=== PATIENT | male | born 1990 | race Caucasian/White ===

== ENCOUNTER 2018-07-15 20:28 | Emergency (ER) | payer SELFPAY ==
[2018-07-15] MEDS ORDERED: ONDANSETRON 4 MG/2 ML VIAL IVP ONE (20:35)
[2018-07-15] MEDS ORDERED: KETOROLAC 30 MG/1 ML SDV IVP ONE (20:39)
[2018-07-15] MEDS: NS 1,000 ML IV ONE ×2 (20:40→22:36)
--- NOTE | 2018-07-15 20:49 | EDPHY ---
H & P Stated Complaint: c/oright flank pain x 30 min Source: Patient Exam Limitations: No limitations - Personal History Current Tetanus Diphtheria and Acellular Pertussis (TDAP): Yes - Medical/Surgical History Hx Asthma: No Hx Chronic Respiratory Disease: No Hx Diabetes: No Hx Cardiac Disease: No Hx Renal Disease: No Hx Cirrhosis: No Hx Alcoholism: No Hx HIV/AIDS: No Hx Splenectomy or Spleen Trauma: No Other PMH: denies - Family History Significant Family History: No pertinent family hx - Social History Smoking Status: Never smoked Drug Use: Marijuana Time Seen by Provider: 07/15/18 20:33 HPI/ROS: 28-year-old male presents complaining of sudden onset of severe right flank pain. He states he was seated at a desk and pain began suddenly. He does state he has been struggling with back pain for over a year but this is very different feeling than that. He denies any injuries. He denies prior history of kidney stones. No fevers or chills. Review of systems As per HPI General no fever no chills no weakness HEENT no eye pain no eye discharge. No eye redness, no sore throat Respiratory no cough, no shortness of breath Cardiac no chest pain, no peripheral edema GI no abdominal pain, no diarrhea, no constipation, positive nausea positive vomiting positive flank pain, no hematuria, no dysuria Musculoskeletal no myalgias, no joint pain Heme no easy bruising, no easy bleeding Endo no polyuria, no polydipsia Skin no rashes, no pruritus Neuro no syncope, no dizziness, no headaches Psych is no suicidal ideation, no homicidal ideation (Aruna Brown B) - Physical Exam Exam: 28-year-old male alert and oriented initially hyperventilating and severe distress secondary to right flank pain notably with carpopedal spasm thin young male HEENT atraumatic normocephalic, extraocular muscles intact, anicteric Oropharynx dry mucosa Neck supple no meningismus Lungs clear to auscultation bilaterally Heart regular rate and rhythm without murmur rub or gallop Abdomen nondistended normoactive bowel sounds soft nontender Back no CVA tenderness, no step-offs, no spinal tenderness right lower back tenderness, no swelling,no rash, no ecchymoses Extremities no cyanosis clubbing or edema Neuro alert and oriented, no focal deficits (Brown,Aruna B) Constitutional: Initial Vital Signs Temperature (C) 36.6 C 07/15/18 20:31 Heart Rate 100 07/15/18 20:31 Respiratory Rate 22 H 07/15/18 20:31 Blood Pressure 141/100 H 07/15/18 20:31 O2 Sat (%) 100 07/15/18 20:31 O2 Delivery Mode Room Air Allergies/Adverse Reactions: No Known Allergies Allergy (Unverified 07/15/18 20:31) Home Medications: Medication Instructions Recorded Ondansetron [Zofran Odt] 4 - 8 mg PO Q8H PRN #6 tab.rapdis 07/16/18 Tamsulosin HCl [Flomax 0.4 MG (*)] 0.4 mg PO DAILY #7 cap 07/16/18 oxyCODONE HCL/ACETAMINOPHEN 1 - 2 each PO Q6 PRN #12 tablet 07/16/18 [Percocet 5-325 mg Tablet] Medical Decision Making - Diagnostics Imaging Results: Imaging Impressions Abdomen/Pelvis CT 07/15/18 21:57 Impression: 1. Moderate obstructive uropathy secondary to a 2 mm stone at the right ureterovesical junction. 2. Additional findings as above. Findings discussed with Aruna Brown MD 07/15/2018 at 22:26. Attention: This CT examination is specifically designed to evaluate patients who are clinically suspected of having acute obstructive uropathy. This examination does not use radiographic contrast and provides only a limited evaluation of the abdomen, pelvis and retroperitoneum. If there is further clinical suspicion for pathological conditions other than obstructive uropathy, a complete CT evaluation of the abdomen and pelvis utilizing intravenous and enteric contrast should be considered. ED Course/Re-evaluation: Patient seen and evaluated for right flank pain. IV established Patient given IV normal saline and Toradol 30 mg IV push as well as Zofran 4 mg IV push Labs CBC white blood cell count 15, H&H normal BMP Creatinine 1.3, electrolytes within normal limits Urine dip pending Patient continued to have right flank pain, given morphine [address] scan ordered to rule out obstructive uropathy CT positive for 2 mm stone at the right UVJ with mild hydronephrosis Patient with ongoing pain given an additional 4 mg morphine IV push. Imp Acute Obstructive Uropathy, Right UVJ Plan Care turned over to Dr Norah pending pain relief and ultimately discharge. ( Aruna Brown) Differential Diagnosis: Differential diagnosis considered but not limited to: Right paralumbar strain, herniated disc, pyelonephritis, kidney stone, ureteral stone (Aruna Brown) Other Provider: Patient care assumed at [2300]. Case reviewed with the initial physician, chart reviewed. Patient interviewed examined. Initially at 2300 hr the pain was in control at 23:00 p.m. Awaiting for him to urinate. Over the ensuing hour he received another L of fluid and again has been and Pee, does not really have the urge, the pain is slowly getting worse. CT scan reviewed and there is some shadows in the right kidney to suggest some early formation of other stones. There is indeed a 2 mm stone at the right UVJ. Interpretation by radiologist. Radiologist did communicate with Dr. Brown. The report has been reviewed and films of were reviewed by me on PACs. On my history the patient states he has been in the doldrums somewhat. With that, he finds he really does not hydrate all that much. Thus he concurs that he might well have been dehydrated going today. Ever since approximately a year ago he had a martial arts back injury and has had problems with that ever since on off and on basis. Earlier today he had quite a bit discomfort fter he went out for a run and thought that was the problem. Went to rest on the couch and felt"lethargic". It was at that time the pain on the back really started. He reports the pain is in the back this point in time is the same locations and sedation just more intense in that when he been having. Early in the week as well as today there is no dysuria frequency or hematuria. Evidently became somewhat panicked after getting the car as he was so much worse and the bumps in the road made things worth at which point noted the carpal pedal spasm. Thereby he had quite a difficulty getting out of a car. Pain management review has include the following: Toradol 30 mg at 20:39 pm Morphine 4 mg at 21:57 p.m. Morphine 4 mg at 22:29 p.m. On exam: Afebrile vital signs stable Nontoxic, he was given lean male who had carpopedal spasm which resolved. At this point in time as I have interviewed him and examined him his pain is become from moderate to moderately severe: Abdomen: Bowel sounds are present. Thin male though abdomen is flat at this time. However percussion notice diffusely tympanitic. I do not hear any dullness over the suprapubic area. Bedside ultrasound performed by me. Small did amount of urine in the bladder. Of note is that he was tender to the probe being pressed over the right flank. At that juncture, he was given the following: Dilaudid 1 mg IV Ativan 0.5 mg IV. Thereafter the pain became under substantially better control and he was able to urinate. The urinalysis did reflect as expected some 3+ blood and trace ketones but no signs of infectious elements with negative nitrites and negative leukocytes. Given the spectrum of nephrocalcinosis, depression, fatigue, musculoskeletal back pain, and kidney stone parathyroid hormone levels and phosphorus levels have been ordered and will be resulted in a few days time. Further, he will be referred to Medicine as well as Urology. We met and had a lengthy discussion regarding a discharge plan for pain management and follow-up. (Too Almazan) - Data Points Laboratory Results: 07/16/18 07/15/18 00:02 20:45 POC Sodium 145 mEq/L mEq/L (135-145) POC Potassium 3.6 mEq/L mEq/L (3.3-5.0) POC Chloride 106.0 mEq/L mEq/L (97-110) POC Total CO2 24 mEq/L mEq/L (22-31) POC BUN 15 mg/dL mg/dL (7-23) POC Creatinine 1.3 mg/dL mg/dL (0.7-1.3) POC Glucose 99 mg/dL mg/dL (70-100) POC Calcium 10.0 mg/dL mg/dL (8.5-10.4) PTH Intact 152.1 pg/mL H pg/mL (10.8-79.4) Calcium (PTH Intact) 8.9 mg/dL mg/dL (8.5-10.4) Creat (PTH Intact) 1.0 mg/dL mg/dL (0.7-1.3) Phosph (PTH Intact) 2.3 mg/dL L mg/dL (2.5-4.5) Medications Given: Discontinued Medications Hydromorphone HCl (Dilaudid) 1 mg IVP EDNOW ONE Stop: 07/16/18 00:19 Last Admin: 07/16/18 00:27 Dose: 1 mg Sodium Chloride (Ns) 1,000 mls @ 0 mls/hr IV ONCE ONE PRN Reason: Wide Open Stop: 07/15/18 20:36 Last Admin: 07/15/18 22:36 Dose: 1,000 mls Sodium Chloride (Ns) 1,000 mls @ 0 mls/hr IV ONCE ONE PRN Reason: Wide Open Stop: 07/15/18 22:31 Last Admin: 07/15/18 22:39 Dose: 1,000 mls Ketorolac Tromethamine (Toradol) 30 mg IVP EDNOW ONE Stop: 07/15/18 20:40 Last Admin: 07/15/18 20:42 Dose: 30 mg Lorazepam (Ativan Injection) 0.5 mg IVP EDNOW ONE Stop: 07/16/18 00:19 Last Admin: 07/16/18 00:26 Dose: 0.5 mg Morphine Sulfate (Morphine) 4 mg IVP EDNOW ONE Stop: 07/15/18 21:58 Last Admin: 07/15/18 22:01 Dose: 4 mg Morphine Sulfate (Morphine) 4 mg IVP EDNOW ONE Stop: 07/15/18 22:30 Last Admin: 07/15/18 22:39 Dose: 4 mg Ondansetron HCl (Zofran) 4 mg IVP EDNOW ONE Stop: 07/15/18 20:36 Last Admin: 07/15/18 20:40 Dose: 4 mg Ondansetron HCl (Zofran Odt 4 Mg Prepack#2) 1 btl TAKEHOME EDNOW ONE Stop: 07/16/18 01:41 Last Admin: 07/16/18 01:47 Dose: 1 btl Oxycodone/Acetaminophen (Percocet 5/325mg Prepack#4) 1 btl TAKEHOME EDNOW ONE Stop: 07/16/18 01:41 Last Admin: 07/16/18 01:47 Dose: 1 btl Tamsulosin HCl (Flomax) 0.4 mg PO EDNOW ONE Stop: 07/15/18 22:29 Last Admin: 07/15/18 22:37 Dose: 0.4 mg Point of Care Test Results: CBC CBC Collection Date 07/15/18 CBC Collection Time 20:59 WBC 15.1 RBC 4.96 HGB 14.5 HCT 43.6 PLT 308 Neut # 10.1 Neut 66.6 LYMPH # 4.1 LYMPH 27.4 Other WBC # 0.9 Other WBC 6.0 MCV 87.9 Chemistry 07/15/18 20:45 POC Sodium 145 mEq/L mEq/L (135-145) POC Potassium 3.6 mEq/L mEq/L (3.3-5.0) POC Chloride 106.0 mEq/L mEq/L (97-110) POC Total CO2 24 mEq/L mEq/L (22-31) POC BUN 15 mg/dL mg/dL (7-23) POC Creatinine 1.3 mg/dL mg/dL (0.7-1.3) POC Glucose 99 mg/dL mg/dL (70-100) POC Calcium 10.0 mg/dL mg/dL (8.5-10.4) Urine Dip Collection Date 07/16/18 Collection Time 01:15 Specific [place] (1.002-1.030) 1.025 PH (5.0-7.5) 6.0 Leukocytes (Negative) Negative Nitrites (Negative) Negative Protein (Negative) 1+ Glucose (Negative) Negative Ketones (Negative) Trace Urobilnogen (0.2-1.0 EU) 0.2 Bilirubin (Negative) Negative Blood (Negative) 3+ Departure - Departure Disposition: Home, Routine, Self-Care Clinical Impression: Ureteral calculus, right, Nephrocalcinosis Condition: Good Instructions: Renal Colic (ED), Ureteral Stones (ED) Additional Instructions: Strain your urine, cup to save the stone if you do find it. Return if the pain is out of control or you have fever. For the pain: Ibuprofen 800 mg 3 times a day for 5 days Percocet 1-2 every 6 hours as needed = once your done, flush the left over medications down the toilet. For Nausea: Zofran 4-8 mg as needed every 8 hours - this may be expensive, so, fill only once you have used up the started pack To help pass the stone: Flomax for a week. Call tommorow to arrange follow up: Urology Medical Also, [facility] does sliding scale. Labs are still pending on your Parathyroid. Call on Jul 17 afternoon from the results or later. [phone] Referrals: NONE *PRIMARY CARE P,. [Primary Care Provider] - As per Instructions Herson Seals MD [Medical Doctor] - As per Instructions Betsy Butler DO [Doctor of Osteopathy] - As per Instructions Prescriptions: Ondansetron [Zofran Odt] 4 - 8 mg PO Q8H PRN #6 tab.rapdis PRN Reason: Nausea/Vomiting, Can'T Take Po oxyCODONE HCL/ACETAMINOPHEN [Percocet 5-325 mg Tablet] 1 - 2 each PO Q6 PRN #12 tablet PRN Reason: moderate to severe pain Tamsulosin HCl [Flomax 0.4 MG (*)] 0.4 mg PO DAILY #7 cap
[2018-07-15] MEDS ORDERED: TAMSULOSIN HCL 0.4 MG CAP PO ONE (22:28)
[2018-07-15] MEDS ORDERED: NS 1,000 ML IV ONE (22:30)
[2018-07-16] MEDS ORDERED: HYDROmorphONE/DILAUDID 2 MG/ML INJ IVP ONE (00:18)
[2018-07-16] MEDS ORDERED: LORazepam 2 MG/ML INJ IVP ONE (00:18)
[2018-07-16] MEDS ORDERED: ONDANSETRON 4 MG/2 ML VIAL ONE (00:22)
[2018-07-16] MEDS ORDERED: ONDANSETRON 4MG PREPACK#2 BTL TAKEHOME ONE (01:40)
[2018-07-16] MEDS ORDERED: OXYCODONE/APAP 5/325MG PREPACK#4 BTL TAKEHOME ONE (01:40)
[2018-07-16 02:07] VITALS: BP 134/68
== END 2018-07-16 02:04 | disposition home or self-care (01) ==
LOC: CED 20:28
DX: N13.2 Hydronephrosis with renal and ureteral calculous obstruction (principal)
CPT/HCPCS: 74176-PO; 80048-PO; 96374; J1170; J1885; J2060; J2270; J2405

== ENCOUNTER 2018-07-17 07:46 | Emergency (ER) | payer SELFPAY ==
--- NOTE | 2018-07-17 07:56 | EDPHY ---
H & P Stated Complaint: kidney stones, pain Time Seen by Provider: 07/17/18 08:10 HPI/ROS: 28 yo M seen here originally on Labor Day Jul 15, late evening with severe right flank pain. At that time diagnosed with a 2 mm stone at the UVJ with mild hydronephrosis , and nephrocalcinosis, after pain medication and fluids, pain control obtained and he was discharged home on oxycodone/ondansetron/flomax. He did not fill the flomax. He states he had a good day on Jul 16, but then awoke this morning with severe right lower back pain again similar to the pain he had on Sunday night. Review of systems As per HPI General no fever no chills positive fatigue HEENT no eye pain no eye discharge. No eye redness, no sore throat Respiratory no cough, no shortness of breath Cardiac no chest pain, no peripheral edema GI no abdominal pain, no diarrhea, no constipation, no nausea, no vomiting positive flank pain, no hematuria, no dysuria Musculoskeletal no myalgias, no joint pain Heme no easy bruising, no easy bleeding Endo no polyuria, no polydipsia Skin no rashes, no pruritus Neuro no syncope, no dizziness, no headaches Psych is no suicidal ideation, no homicidal ideation Source: Patient Exam Limitations: No limitations - Personal History Current Tetanus Diphtheria and Acellular Pertussis (TDAP): Yes - Medical/Surgical History Hx Asthma: No Hx Chronic Respiratory Disease: No Hx Diabetes: No Hx Cardiac Disease: No Hx Renal Disease: No Hx Cirrhosis: No Hx Alcoholism: No Hx HIV/AIDS: No Hx Splenectomy or Spleen Trauma: No Other PMH: denies - Family History Significant Family History: No pertinent family hx - Social History Smoking Status: Never smoked Alcohol Use: Occasionally Drug Use: Marijuana - Physical Exam Exam: thin slightly pale young male in acute distress secondary to right lower back/ flank pain at,nc op dry mucosa neck supple, no jvd lungs cta bilat heart rrr abd non dist bs present, soft back right paralumbar ttp, no rash, no ecchymoses ext no cce skin no rash neuro alert and oriented, no foacl deficits Constitutional: Initial Vital Signs Temperature (C) 37 C 07/17/18 07:56 Heart Rate 72 07/17/18 07:56 Respiratory Rate 18 07/17/18 07:56 Blood Pressure 154/100 H 07/17/18 07:56 O2 Sat (%) 98 07/17/18 07:56 O2 Delivery Mode Room Air Allergies/Adverse Reactions: No Known Allergies Allergy (Unverified 07/15/18 20:31) Home Medications: Medication Instructions Recorded Ondansetron [Zofran Odt] 4 - 8 mg PO Q8H PRN #6 tab.rapdis 07/16/18 Tamsulosin HCl [Flomax 0.4 MG (*)] 0.4 mg PO DAILY #7 cap 07/16/18 oxyCODONE HCL/ACETAMINOPHEN 1 - 2 each PO Q6 PRN #12 tablet 07/16/18 [Percocet 5-325 mg Tablet] Medical Decision Making - Diagnostics Imaging Results: Imaging Impressions Abdomen X-Ray 07/17/18 09:08 Impression: Normal two-view abdomen series. The previously identified 2 mm right UVJ calculus is not delineated on x-ray imaging. ED Course/Re-evaluation: Pt seen and evaluated for right flank lower back pain, recently diagnosed with kidney stone at uvj on right. IV establish, labs sent Pt given IV fluids and initially fentanyl 50 mcg, pain down to a 5/10 After establishing a normal creatinine , given toradol 30 mg ivp, pain down to a 1/10. Urine dip with blood and sp gr 1030 , no leukocytes, or nitrites CBC wbc wnl creatinine 1.0 ionized calcium 1.31 reg calcium 9.6 Pt given second liter fluid On Sunday night when he was here labs were sent for PTH based on his new hx of kidney stones and nerphocalcinosis along with mulitple other longer term symptoms of fatigue, body aches, back pain, "doldrums". The PTH was markedly elevated. I discussed this with him and arranged follow up with [facility], additionally I gave him the basics and beyond the basics for patients from Up to Date about hyperparathyroidism. Imp right ureteral stone, renal colic hyperparthyroidism Plan Home continue flomax Strain urine stay hydrated f/u pcp f/u endocrine Differential Diagnosis: Differential diagnosis considered for this visit but not limited to: Renal colic, ureterolithiasis, pyelonephritis, urinary tract infection, lumbar strain - Data Points Laboratory Results: 07/17/18 07/17/18 07/17/18 08:32 08:14 08:14 POC Sodium 140 mEq/L mEq/L (135-145) POC Potassium 4.3 mEq/L mEq/L (3.3-5.0) POC Chloride 116.0 mEq/L H mEq/L (97-110) POC Total CO2 26 mEq/L mEq/L (22-31) POC BUN 8 mg/dL mg/dL (7-23) POC Creatinine 1.0 mg/dL mg/dL (0.7-1.3) POC Glucose 101 mg/dL H mg/dL (70-100) POC Calcium 9.6 mg/dL mg/dL (8.5-10.4) Ionized Calcium 1.31 MMOL/L H MMOL/L (1.12-1.30) Phosphorus 2.4 mg/dL L mg/dL (2.5-4.5) Magnesium 2.0 mg/dL mg/dL (1.6-2.3) 25-OH Vitamin D Total 32.0 ng/mL ng/mL (30.0-100.0) Medications Given: Discontinued Medications Fentanyl (Sublimaze) 50 mcg IVP EDNOW ONE Stop: 07/17/18 08:07 Last Admin: 07/17/18 08:23 Dose: 50 mcg Sodium Chloride (Ns) 1,000 mls @ 0 mls/hr IV ONCE ONE PRN Reason: Wide Open Stop: 07/17/18 08:05 Last Admin: 07/17/18 08:17 Dose: 1,000 mls Sodium Chloride (Ns) 1,000 mls @ 0 mls/hr IV ONCE ONE PRN Reason: Wide Open Stop: 07/17/18 09:20 Last Admin: 07/17/18 09:21 Dose: 1,000 mls Ketorolac Tromethamine (Toradol) 30 mg IVP EDNOW ONE Stop: 07/17/18 08:49 Last Admin: 07/17/18 09:07 Dose: 30 mg Ondansetron HCl (Zofran) 4 mg IVP EDNOW ONE Stop: 07/17/18 08:34 Last Admin: 07/17/18 08:49 Dose: 4 mg Tamsulosin HCl (Flomax) 0.4 mg PO EDNOW ONE Stop: 07/17/18 08:34 Last Admin: 07/17/18 08:50 Dose: 0.4 mg Point of Care Test Results: CBC CBC Collection Date 07/17/18 CBC Collection Time 08:20 WBC 4.8 RBC 4.44 HGB 13 HCT 39.5 PLT 219 Neut # 3.3 Neut 67.3 LYMPH # 1.3 LYMPH 27.6 Other WBC # 0.2 Other WBC 5.1 MCV 89 Chemistry 07/17/18 08:32 POC Sodium 140 mEq/L mEq/L (135-145) POC Potassium 4.3 mEq/L mEq/L (3.3-5.0) POC Chloride 116.0 mEq/L H mEq/L (97-110) POC Total CO2 26 mEq/L mEq/L (22-31) POC BUN 8 mg/dL mg/dL (7-23) POC Creatinine 1.0 mg/dL mg/dL (0.7-1.3) POC Glucose 101 mg/dL H mg/dL (70-100) POC Calcium 9.6 mg/dL mg/dL (8.5-10.4) Urine Dip Collection Date 07/17/18 Collection Time 10:20 Specific [place] (1.002-1.030) 1.030 PH (5.0-7.5) 6.5 Leukocytes (Negative) Negative Nitrites (Negative) Negative Protein (Negative) Negative Glucose (Negative) Negative Ketones (Negative) Negative Urobilnogen (0.2-1.0 EU) 0.2 Bilirubin (Negative) Negative Blood (Negative) 2+ Departure - Departure Disposition: Home, Routine, Self-Care Clinical Impression: Ureteral stone with hydronephrosis, Hyperparathyroidism Condition: Good Instructions: Renal Colic (ED) Referrals: Zora Bee MD [Medical Doctor] - As per Instructions [facility] [Provider Group] - As per Instructions
[2018-07-17] MEDS ORDERED: NS 1,000 ML IV ONE ×2 (08:04→09:19)
[2018-07-17] MEDS ORDERED: fentaNYL 100 MCG/2 ML INJ IVP ONE (08:06)
[2018-07-17] MEDS ORDERED: ONDANSETRON 4 MG/2 ML VIAL IVP ONE (08:33)
[2018-07-17] MEDS ORDERED: TAMSULOSIN HCL 0.4 MG CAP PO ONE (08:33)
[2018-07-17] MEDS ORDERED: KETOROLAC 30 MG/1 ML SDV IVP ONE (08:48)
[2018-07-17] MEDS ORDERED: NS 1,000 ML IV SCH (09:15)
[2018-07-17 11:34] VITALS: BP 120/67
== END 2018-07-17 11:32 | disposition home or self-care (01) ==
LOC: CED 07:46
DX: N13.2 Hydronephrosis with renal and ureteral calculous obstruction (principal); E21.3 Hyperparathyroidism, unspecified
CPT/HCPCS: 74018-PO; 80048-PO; 96374; J1885; J2405; J3010

== ENCOUNTER 2018-07-19 06:30 | Emergency (ER) | payer SELFPAY | END 2018-07-19 06:48 | disposition left against medical advice (07) | LOC: CED 06:30 | DX: Z53.21 Procedure and treatment not carried out due to patient leaving prior to being seen by health care provider (principal) ==